=== PATIENT | female | born 1980 | race Caucasian/White ===

== ENCOUNTER → 2019-09-23 | Outpatient (CLI) | payer OTHER | LOC: COL.RAD 08:03 | DX: R68.81 Early satiety (principal) | CPT/HCPCS: A9541 ==

== ENCOUNTER → 2019-11-28 | Outpatient (CLI) | payer OTHER | LOC: COL.RAD 11:51 | DX: K82.8 Other specified diseases of gallbladder (principal) | CPT/HCPCS: A9537; J2805 ==